=== PATIENT | female | born 1960 | race Caucasian/White ===

== ENCOUNTER 2018-02-25 07:53 | Inpatient (IN) | payer BC ==
[2018-02-25] MEDS: ACETAMINOPHEN 325 MG TAB PO ×2 (08:37→21:45)
[2018-02-25] MEDS: SODIUM CHLORIDE 0.9% 1L BAG IV* (08:37)
[2018-02-25] MEDS: ONDANSETRON 4 MG INJ IV ×3 (08:37→21:45)
[2018-02-25] MEDS: CEFEPIME 2GM/50 ML (PMX) 50 ML IVPB (08:38)
[2018-02-25] MEDS: morphine 4 MG/ML VIAL IV (08:38)
[2018-02-25 09:03] LABS: ADD MAN DIFF? NO
[2018-02-25 09:06] LABS: WHITE BLOOD COUNT 8.8 10^3/ul (4.8-10.8)
[2018-02-25 09:06] LABS: ABNORMAL IP MESSAGE 1; BASOPHILS % 0.5 % (0.0-2.0); EOSINOPHILS % 0.3 % (0.0-7.0); HEMATOCRIT 40.9 % (37.0-47.0); HEMOGLOBIN 12.9 g/dl (12.0-16.0); LYMPHOCYTES # 0.4 10^3/ul (0.8-2.9); LYMPHOCYTES % 4.9 % (15.0-51.0); MEAN CORPUSCULAR HEMOGLOBIN 26.8 pg (29.0-33.0); MEAN CORPUSCULAR HGB CONC 31.5 g/dl (32.0-37.0); MEAN PLATELET VOLUME 10.1 fl (7.4-10.4); MONOCYTES % 0.3 % (0.0-11.0); NEUTROPHIL # 8.3 10^3/ul (1.6-7.5); NEUTROPHILS % 93.3 % (39.0-77.0); PLATELET COUNT 215 10^3/UL (140-415); POSITIVE DIFF @See below; RED BLOOD COUNT 4.81 10^6/ul (4.20-5.40)
[2018-02-25 09:26] LABS: ALANINE AMINOTRANSFERASE 30 IU/L (13-69); ALBUMIN/GLOBULIN RATIO 1.25; ALKALINE PHOSPHATASE 111 IU/L (42-121); ANION GAP 24 (8-16); ASPARTATE AMINO TRANSFERASE 34 IU/L (15-46); BLOOD UREA NITROGEN 12 mg/dl (7-20); CALCIUM 9.2 mg/dl (8.4-10.2); CARBON DIOXIDE 23 mmol/L (21-31); CHLORIDE 95 mmol/L (97-110); CREATININE 0.81 mg/dl (0.44-1.00); GLUCOSE 254 mg/dl (70-220); INR 1.03; POTASSIUM 3.7 mmol/L (3.5-5.1); PROTIME 13.6 Sec (11.9-14.9); PT RATIO 1.1; SODIUM 138 mmol/L (135-144); TOTAL PROTEIN 7.2 g/dl (6.1-8.1)
[2018-02-25 09:27] LABS: PARTIAL THROMBOPLASTIN TIME 27.6 Sec (25.0-35.0)
[2018-02-25] MEDS: VANCOMYCIN 1 GM (PMX) 250 ML IVPB (09:28)
[2018-02-25 09:30] LABS: LACTIC ACID 4.9 mmol/L (0.5-2.0)
[2018-02-25 09:38] LABS: TROPONIN-I 0.114 ng/ml (0.000-0.120)
[2018-02-25 10:02] LABS: ADD UMIC YES; UR ASCORBIC ACID 20 mg/dL (NEGATIVE); UR BACTERIA FEW /HPF (NONE SEEN); UR BILIRUBIN (Dip) NEGATIVE (NEGATIVE); UR BLOOD (Dip) NEGATIVE (NEGATIVE); UR CLARITY CLEAR (CLEAR); UR COLOR YELLOW (YELLOW); UR GLUCOSE (Dip) 3+ mg/dL (NEGATIVE); UR KETONES (Dip) 1+ mg/dL (NEGATIVE); UR LEUKOCYTE ESTERASE (Dip) NEGATIVE Leu/ul (NEGATIVE); UR NITRITE (Dip) NEGATIVE (NEGATIVE); UR RBC 1 /HPF (0-5); UR SPECIFIC GRAVITY (Dip) 1.028 (1.003-1.030); UR SQUAMOUS EPITHELIAL CELL FEW /HPF (FEW); UR TOTAL PROTEIN (Dip) 2+ mg/dl (NEGATIVE); UR UROBILINOGEN (Dip) NEGATIVE (NEGATIVE); UR WBC 3 /HPF (0-5)
[2018-02-25 11:05] LABS: LACTIC ACID 3.8 mmol/L (0.5-2.0)
[2018-02-25] MEDS ORDERED: hydrALAzine 20 MG INJ IV (11:30)
[2018-02-25] MEDS ORDERED: ZOLPIDEM 5 MG TAB PO (11:30)
[2018-02-25] MEDS ORDERED: DOCUSATE SODIUM 100 MG CAP PO (11:30)
[2018-02-25] MEDS ORDERED: ACETAMINOPHEN 325 MG TAB PO (11:30)
[2018-02-25] MEDS ORDERED: NACL 0.9% 3 ML SYG IV (11:30)
[2018-02-25] MEDS: SOD CHLORIDE 0.9% 1,000 ML IV ×2 (12:55→21:17)
[2018-02-25] MEDS: morphine 2 MG INJ IV (13:18)
[2018-02-25 13:21] LABS: LACTIC ACID 2.8 mmol/L (0.5-2.0)
[2018-02-25] MEDS: INSULIN ASPART [NOVOLOG] 3 ML PEN SC ×5 (15:03→21:29)
[2018-02-25] MEDS: CEFTRIAXONE 1 GM/50 ML (PMX) 50 ML IVPB (17:30)
[2018-02-25] MEDS: morphine LIQ (10 MG/5 ML) CUP PO ×2 (17:31→21:45)
[2018-02-25] MEDS: LOSARTAN 25 MG TAB PO (18:25)
[2018-02-25] MEDS: ATORVASTATIN 20 MG TAB PO (21:19)
[2018-02-25] MEDS: TAMSULOSIN (SR) 0.4 MG CAP PO (21:19)
[2018-02-25] MEDS: HEPARIN 5,000 UNIT/0.5 ML VIAL SC (21:28)
[2018-02-25] MEDS: INSULIN GLARGINE [LANtus] 3 ML PEN SC (21:30)
[2018-02-25] MEDS ORDERED: VANCOMYCIN IV PER PHARMACY XX (22:30)
[2018-02-25] MEDS ORDERED: LORAZEPAM 2 MG INJ IM (22:30)
[2018-02-25] MEDS: LORAZEPAM 2 MG INJ IV (22:47)
[2018-02-25] MEDS: SOD CHLORIDE 0.9% 500 ML IV (22:47)
[2018-02-25] MEDS: PIPER-TAZO 3.375 GM IV (PMX) 100 ML IVPB (23:11)
[2018-02-26] MEDS: VANCOMYCIN 2 GM in SOD CHLORIDE 0.9% 500 ML IVPB (01:24)
[2018-02-26] MEDS: SOD CHLORIDE 0.9% 1,000 ML IV ×4 (01:39→20:30)
[2018-02-26] MEDS: ACCU-CHEK XX (01:50)
[2018-02-26] MEDS: NORepinephrine 8MG/250 ML (PMX 250 ML IV (02:41)
[2018-02-26] MEDS: LIDOCAINE 1% (MPF) 5 ML VIAL SC (03:00)
[2018-02-26] MEDS: MIDODRINE 5 MG TAB PO ×4 (05:21→20:50)
[2018-02-26] MEDS: ALBUMIN HUMAN 25% 100 ML IV (05:24)
[2018-02-26 06:02] LABS: LACTIC ACID 1.2 mmol/L (0.5-2.0)
[2018-02-26 06:11] LABS: ABNORMAL IP MESSAGE 1; HEMATOCRIT 36.9 % (37.0-47.0); HEMOGLOBIN 11.7 g/dl (12.0-16.0); MEAN CORPUSCULAR HEMOGLOBIN 27.1 pg (29.0-33.0); MEAN CORPUSCULAR HGB CONC 31.7 g/dl (32.0-37.0); MEAN CORPUSCULAR VOLUME 85.6 fl (82.0-101.0); MEAN PLATELET VOLUME 10.9 fl (7.4-10.4); PLATELET COUNT 161 10^3/UL (140-415); RED BLOOD COUNT 4.31 10^6/ul (4.20-5.40); RED CELL DISTRIBUTION WIDTH 14.6 % (11.5-14.5)
[2018-02-26 06:11] LABS: WHITE BLOOD COUNT 23.6 10^3/ul (4.8-10.8)
[2018-02-26 06:21] LABS: ANION GAP 19 (8-16); BLOOD UREA NITROGEN 24 mg/dl (7-20); CALCIUM 7.7 mg/dl (8.4-10.2); CARBON DIOXIDE 19 mmol/L (21-31); CHLORIDE 103 mmol/L (97-110); CREATININE 1.87 mg/dl (0.44-1.00); GLUCOSE 229 mg/dl (70-220); MAGNESIUM 1.3 mg/dl (1.7-2.5); PHOSPHORUS 4.5 mg/dl (2.5-4.9); POTASSIUM 4.3 mmol/L (3.5-5.1); SODIUM 137 mmol/L (135-144)
[2018-02-26] MEDS: PIPER-TAZO 3.375 GM IV (PMX) 100 ML IVPB ×2 (06:23→20:30)
[2018-02-26 06:50] LABS: POSITIVE DIFF @See below
[2018-02-26 06:51] LABS: ADD MAN DIFF? YES
[2018-02-26] MEDS ORDERED: PHENYLephrine (100 MCG/ML) 10ML SYG (07:00)
[2018-02-26] MEDS ORDERED: ALBUMIN HUMAN 5% 250 ML INJ (07:00)
[2018-02-26] MEDS ORDERED: ROCURONIUM 50 MG INJ (07:00)
[2018-02-26 07:57] LABS: ANISOCYTOSIS 2+ (0-0); BAND NEUTROPHILS #M 5.4 10^3/ul (0.0-0.6); BAND NEUTROPHILS % (M) 23 % (0-4); ERYTHROBLAST% (NRBC) (M) 1 % (0-0); LYMPHOCYTES #M 1.1 10^3/ul (0.8-2.9); LYMPHOCYTES % (M) 5 % (15-51); MICROCYTOSIS 2+ (0-0); MONOCYTE #M 0.4 10^3/ul (0.3-0.9); MONOCYTES % (M) 2 % (0-11); POLYCHROMASIA 3+ (0-0); SEG NEUT #M 17.8 10^3/ul (1.6-7.5); SEGMENTED NEUTROPHILS (M) % 70 % (39-77); SMUDGE%M 11 % (0-0)
[2018-02-26 08:03] LABS: PLATELET ESTIMATE NORMAL
[2018-02-26 08:09] LABS: ADD UMIC YES; UR ASCORBIC ACID NEGATIVE (NEGATIVE); UR BACTERIA FEW /HPF (NONE SEEN); UR BILIRUBIN (Dip) NEGATIVE (NEGATIVE); UR BLOOD (Dip) 2+ mg/dL (NEGATIVE); UR CLARITY TURBID (CLEAR); UR COLOR AMBER (YELLOW); UR GLUCOSE (Dip) 3+ mg/dL (NEGATIVE); UR KETONES (Dip) TRACE mg/dL (NEGATIVE); UR LEUKOCYTE ESTERASE (Dip) 2+ Leu/ul (NEGATIVE); UR MUCUS FEW /HPF (NONE SEEN); UR NITRITE (Dip) NEGATIVE (NEGATIVE); UR NONSQUAMOUS EPITHELIAL CELL 4 /HPF (NONE SEEN); UR RBC 25 /HPF (0-5); UR SQUAMOUS EPITHELIAL CELL FEW /HPF (FEW); UR TOTAL PROTEIN (Dip) 2+ mg/dl (NEGATIVE); UR UROBILINOGEN (Dip) NEGATIVE (NEGATIVE); UR WBC > 182 /HPF (0-5)
[2018-02-26] MEDS: INSULIN ASPART [NOVOLOG] 3 ML PEN SC ×7 (08:38→20:39)
[2018-02-26] MEDS: HEPARIN 5,000 UNIT/0.5 ML VIAL SC ×2 (09:00→20:41)
[2018-02-26] MEDS: LOSARTAN 25 MG TAB PO ×2 (09:00→20:44)
[2018-02-26] MEDS: GABAPENTIN 300 MG CAP PO (09:00)
[2018-02-26] MEDS: morphine LIQ (10 MG/5 ML) CUP PO ×2 (12:10→22:49)
[2018-02-26] MEDS: ONDANSETRON 4 MG INJ IV (12:10)
[2018-02-26] MEDS: PIPER-TAZO 2.25 GM (PMX) 50 ML IVPB (12:11)
[2018-02-26 14:25] LABS: HEMOGLOBIN A1C 7.5 % (0-5.9)
[2018-02-26] MEDS: VANCOMYCIN 1.5 GM in SOD CHLORIDE 0.9% 250 ML IVPB (15:46)
[2018-02-26] MEDS: MAGNESIUM SULFATE 2 GM/50 ML 50 ML IVPB ×3 (17:00→22:53)
[2018-02-26] MEDS ORDERED: MIDAZOLAM 1 MG/ML 2 ML INJ ×2 (17:02→18:47)
[2018-02-26] MEDS ORDERED: LIDOCAINE 2% (SDV) 5 ML INJ (17:02)
[2018-02-26] MEDS ORDERED: FENTAnyl 50 MCG/ML VIAL (17:02)
[2018-02-26] MEDS ORDERED: ETOMIDATE 20 MG INJ (17:02)
[2018-02-26] MEDS ORDERED: SUCCINYLCHOLINE CHLORIDE 100 MG/5 ML SYG IV (17:03)
[2018-02-26] MEDS ORDERED: MAGNESIUM SULFATE 4 GM/100 ML 100 ML IVPB (18:00)
[2018-02-26] MEDS ORDERED: IOHEXOL 300MG/ML 30 ML BTL (18:06)
[2018-02-26] MEDS ORDERED: SUGAMMADEX SODIUM 200 MG/2 ML VIAL IV (18:10)
[2018-02-26] MEDS ORDERED: METOCLOPRAMIDE 10 MG INJ (18:10)
[2018-02-26] MEDS: MIDAZOLAM 1 MG/ML 2 ML INJ IV (18:55)
[2018-02-26] MEDS ORDERED: LORAZEPAM 2 MG INJ IV (19:30)
[2018-02-26] MEDS ORDERED: VANCOMYCIN 2 GM in SOD CHLORIDE 0.9% 500 ML IVPB (19:30)
[2018-02-26] MEDS: ATORVASTATIN 20 MG TAB PO (20:23)
[2018-02-26] MEDS: TAMSULOSIN (SR) 0.4 MG CAP PO (20:23)
[2018-02-26] MEDS: LORAZEPAM 2 MG INJ IV ×2 (20:28→22:44)
[2018-02-26] MEDS: INSULIN GLARGINE [LANtus] 3 ML PEN SC (20:49)
[2018-02-26] MEDS: LEVALBUTEROL (NEB) 0.63 MG/3 ML AMP HHN (22:40)
[2018-02-26] MEDS: ACETAMINOPHEN 325 MG TAB PO (22:58)
[2018-02-27 00:27] LABS: Allen Test ACCEPTAB; Arterial Base Excess -10.9 mmol/L (-3.0-3); Arterial Blood Gas Oxygen Sat 96.2 mmHG (95.0-98.0); Arterial COHb 0.4 % (0.0-3.0); Arterial Fraction of Oxyhgb 95.4 % (93.0-99.0); Arterial HCO3 17.5 mmol/L (22.0-26.0); Arterial MetHb 0.4 % (0.0-1.5); Arterial Total Hemglobin 12.4 g/dl (12.0-18.0); Arterial pCO2 49.1 mmhg (35-45); MODE MASK - SIMPLE; Site Right Radial
[2018-02-27] MEDS ORDERED: FUROSEMIDE 40 MG INJ IV (01:00)
[2018-02-27] MEDS: FUROSEMIDE 20 MG INJ IV (01:32)
[2018-02-27] MEDS: FUROSEMIDE 40 MG INJ IV (01:38)
[2018-02-27] MEDS: PIPER-TAZO 3.375 GM IV (PMX) 100 ML IVPB ×2 (01:55→06:08)
[2018-02-27] MEDS: ACCU-CHEK XX ×2 (02:28→23:28)
[2018-02-27 03:00] LABS: Arterial Base Excess -8.5 mmol/L (-3.0-3); Arterial Blood Gas Oxygen Sat 97.4 mmHG (95.0-98.0); Arterial COHb 0.4 % (0.0-3.0); Arterial Fraction of Oxyhgb 96.7 % (93.0-99.0); Arterial HCO3 19.2 mmol/L (22.0-26.0); Arterial MetHb 0.3 % (0.0-1.5); Arterial Total Hemglobin 12.7 g/dl (12.0-18.0); Arterial pCO2 48.4 mmhg (35-45); Blood Gas IEPAP 15/5; MODE MASK - BIPAP; Site A-Line
[2018-02-27] MEDS: SOD CHLORIDE 0.9% 1,000 ML IV (03:42)
[2018-02-27 06:16] LABS: ADD MAN DIFF? NO
[2018-02-27 06:24] LABS: WHITE BLOOD COUNT 11.6 10^3/ul (4.8-10.8)
[2018-02-27 06:24] LABS: BASOPHILS % 0.2 % (0.0-2.0); EOSINOPHILS % 0.3 % (0.0-7.0); HEMATOCRIT 34.1 % (37.0-47.0); HEMOGLOBIN 10.6 g/dl (12.0-16.0); LYMPHOCYTES # 0.7 10^3/ul (0.8-2.9); LYMPHOCYTES % 6.4 % (15.0-51.0); MEAN CORPUSCULAR HEMOGLOBIN 26.8 pg (29.0-33.0); MEAN CORPUSCULAR HGB CONC 31.1 g/dl (32.0-37.0); MEAN CORPUSCULAR VOLUME 86.1 fl (82.0-101.0); MEAN PLATELET VOLUME 11.1 fl (7.4-10.4); MONOCYTE # 0.6 10^3/ul (0.3-0.9); MONOCYTES % 4.9 % (0.0-11.0); NEUTROPHIL # 10.1 10^3/ul (1.6-7.5); NEUTROPHILS % 87.7 % (39.0-77.0); PLATELET COUNT 133 10^3/UL (140-415); RED BLOOD COUNT 3.96 10^6/ul (4.20-5.40)
[2018-02-27 06:59] LABS: ANION GAP 18 (8-16); BLOOD UREA NITROGEN 36 mg/dl (7-20); CALCIUM 7.7 mg/dl (8.4-10.2); CARBON DIOXIDE 20 mmol/L (21-31); CHLORIDE 105 mmol/L (97-110); GLUCOSE 174 mg/dl (70-220); MAGNESIUM 2.5 mg/dl (1.7-2.5); POTASSIUM 4.8 mmol/L (3.5-5.1); SODIUM 138 mmol/L (135-144)
[2018-02-27] MEDS: INSULIN ASPART [NOVOLOG] 3 ML PEN SC ×7 (07:35→20:04)
[2018-02-27] MEDS: LOSARTAN 25 MG TAB PO (07:48)
[2018-02-27] MEDS: GABAPENTIN 300 MG CAP PO (09:00)
[2018-02-27] MEDS: MIDODRINE 5 MG TAB PO ×3 (09:00→20:02)
[2018-02-27 09:07] LABS: AADO2 Arterial 107.2 mmHg (7.0-24.0); Arterial Base Excess -13.1 mmol/L (-3.0-3); Arterial COHb 0.2 % (0.0-3.0); Arterial Fraction of Oxyhgb 97.4 % (93.0-99.0); Arterial HCO3 14.7 mmol/L (22.0-26.0); Arterial MetHb 0.4 % (0.0-1.5); Arterial Total Hemglobin 12.1 g/dl (12.0-18.0); Arterial pCO2 41.2 mmhg (35-45); Blood Gas IEPAP 15/5; Blood Gas PS 10; MODE MASK - BIPAP; Site A-Line
[2018-02-27] MEDS: HEPARIN 5,000 UNIT/0.5 ML VIAL SC ×2 (11:10→20:04)
[2018-02-27] MEDS: SODIUM BICARBONATE (IV ADD) 100 MEQ in SOD CHLORIDE 0.45% 1,000 ML IV ×2 (11:10→23:26)
[2018-02-27] MEDS: PIPER-TAZO 2.25 GM (PMX) 50 ML IVPB (11:37)
[2018-02-27] MEDS: BUMETANIDE 6 MG in DEXTROSE 5% 36 ML IV (13:44)
[2018-02-27 16:47] LABS: SODIUM,URINE RANDOM 104 mmol/L (30-90)
[2018-02-27 16:47] LABS: CREATININE,URINE RANDOM 69.25 mg/dl (20-320)
[2018-02-27 18:39] LABS: ANION GAP 17 (8-16); BLOOD UREA NITROGEN 39 mg/dl (7-20); CARBON DIOXIDE 19 mmol/L (21-31); CHLORIDE 107 mmol/L (97-110); GLUCOSE 174 mg/dl (70-220); POTASSIUM 4.8 mmol/L (3.5-5.1); SODIUM 138 mmol/L (135-144)
[2018-02-27] MEDS: MEROPENEM 500MG/50 ML (PMX) 50 ML IVPB (19:53)
[2018-02-27] MEDS: INSULIN GLARGINE [LANtus] 3 ML PEN SC (19:55)
[2018-02-27] MEDS: ATORVASTATIN 20 MG TAB PO (20:01)
[2018-02-27] MEDS: TAMSULOSIN (SR) 0.4 MG CAP PO (20:04)
[2018-02-28] MEDS: LORAZEPAM 2 MG INJ IV (04:26)
[2018-02-28 05:42] LABS: ADD MAN DIFF? NO
[2018-02-28 05:48] LABS: BASOPHILS % 0.3 % (0.0-2.0); EOSINOPHILS # 0.1 10^3/ul (0.0-0.5); EOSINOPHILS % 0.8 % (0.0-7.0); HEMATOCRIT 35.4 % (37.0-47.0); LYMPHOCYTES % 8.3 % (15.0-51.0); MEAN CORPUSCULAR HEMOGLOBIN 26.7 pg (29.0-33.0); MEAN CORPUSCULAR HGB CONC 31.1 g/dl (32.0-37.0); MEAN CORPUSCULAR VOLUME 85.9 fl (82.0-101.0); MEAN PLATELET VOLUME 11.2 fl (7.4-10.4); MONOCYTE # 0.7 10^3/ul (0.3-0.9); MONOCYTES % 6.4 % (0.0-11.0); NEUTROPHIL # 9.7 10^3/ul (1.6-7.5); NEUTROPHILS % 83.5 % (39.0-77.0); PLATELET COUNT 135 10^3/UL (140-415); RED BLOOD COUNT 4.12 10^6/ul (4.20-5.40); RED CELL DISTRIBUTION WIDTH 15.7 % (11.5-14.5)
[2018-02-28 05:48] LABS: WHITE BLOOD COUNT 11.6 10^3/ul (4.8-10.8)
[2018-02-28 06:22] LABS: ANION GAP 21 (8-16)
[2018-02-28 06:30] LABS: BLOOD UREA NITROGEN 44 mg/dl (7-20); CARBON DIOXIDE 21 mmol/L (21-31); CHLORIDE 102 mmol/L (97-110); CREATININE 4.61 mg/dl (0.44-1.00); GLUCOSE 167 mg/dl (70-220); MAGNESIUM 2.6 mg/dl (1.7-2.5); PHOSPHORUS 7.4 mg/dl (2.5-4.9); POTASSIUM 4.8 mmol/L (3.5-5.1); SODIUM 139 mmol/L (135-144)
[2018-02-28] MEDS: INSULIN ASPART [NOVOLOG] 3 ML PEN SC ×7 (07:35→21:00)
[2018-02-28] MEDS: HEPARIN 5,000 UNIT/0.5 ML VIAL SC ×2 (08:12→20:32)
[2018-02-28] MEDS: MEROPENEM 500MG/50 ML (PMX) 50 ML IVPB (08:23)
[2018-02-28] MEDS: SODIUM BICARBONATE (IV ADD) 100 MEQ in SOD CHLORIDE 0.45% 1,000 ML IV (08:23)
[2018-02-28] MEDS: MIDODRINE 5 MG TAB PO ×3 (09:00→20:31)
[2018-02-28] MEDS: GABAPENTIN 300 MG CAP PO (09:00)
[2018-02-28 09:40] LABS: AADO2 Arterial 133.4 mmHg (7.0-24.0); Arterial Base Excess -9.1 mmol/L (-3.0-3); Arterial Blood Gas Oxygen Sat 98.8 mmHG (95.0-98.0); Arterial COHb 0.6 % (0.0-3.0); Arterial Fraction of Oxyhgb 97.8 % (93.0-99.0); Arterial HCO3 20.5 mmol/L (22.0-26.0); Arterial MetHb 0.4 % (0.0-1.5); Arterial Total Hemglobin 12.5 g/dl (12.0-18.0); Arterial pCO2 62.3 mmhg (35-45); Blood Gas IEPAP 15/5; MODE MASK - BIPAP; Site A-Line
[2018-02-28 12:48] LABS: AADO2 Arterial 90.9 mmHg (7.0-24.0); Arterial Base Excess -10.6 mmol/L (-3.0-3); Arterial Blood Gas Oxygen Sat 98.3 mmHG (95.0-98.0); Arterial COHb 0.7 % (0.0-3.0); Arterial Fraction of Oxyhgb 97.2 % (93.0-99.0); Arterial HCO3 18.3 mmol/L (22.0-26.0); Arterial MetHb 0.4 % (0.0-1.5); Arterial Total Hemglobin 13.8 g/dl (12.0-18.0); Arterial pCO2 52.8 mmhg (35-45); Blood Gas IEPAP 18/8; MODE MASK - BIPAP; Site A-Line
[2018-02-28] MEDS: NA BICARBONATE 8.4% 50 ML SYG IV (13:43)
[2018-02-28 13:59] LABS: HEPATITIS B SURFACE ANTIGEN NEGATIVE (NEGATIVE)
[2018-02-28] MEDS: morphine 2 MG INJ IV (15:38)
[2018-02-28] MEDS ORDERED: SODIUM BICARBONATE (IV ADD) 100 MEQ in SOD CHLORIDE 0.45% 900 ML IV (16:30)
[2018-02-28] MEDS: SODIUM BICARBONATE (IV ADD) 100 MEQ in SOD CHLORIDE 0.45% 900 ML IV (16:30)
[2018-02-28] MEDS: TAMSULOSIN (SR) 0.4 MG CAP PO (20:31)
[2018-02-28] MEDS: ATORVASTATIN 20 MG TAB PO (20:31)
[2018-02-28] MEDS: INSULIN GLARGINE [LANtus] 3 ML PEN SC (20:33)
[2018-02-28] MEDS: ACCU-CHEK XX (21:01)
[2018-02-28] MEDS: morphine LIQ (10 MG/5 ML) CUP PO (23:16)
[2018-03-01] MEDS: HEPARIN 1000 UNITS/ML 10 ML INJ CATHETER ×2 (00:06→18:09)
[2018-03-01 01:00] LABS: AADO2 Arterial 57.3 mmHg (7.0-24.0); Arterial Base Excess -7.7 mmol/L (-3.0-3); Arterial Blood Gas Oxygen Sat 98.3 mmHG (95.0-98.0); Arterial COHb 0.1 % (0.0-3.0); Arterial Fraction of Oxyhgb 97.8 % (93.0-99.0); Arterial HCO3 19.5 mmol/L (22.0-26.0); Arterial MetHb 0.4 % (0.0-1.5); Arterial Total Hemglobin 10.9 g/dl (12.0-18.0); Blood Gas IEPAP 15/5; Blood Gas PS 10; MODE MASK - BIPAP; Site A-Line
[2018-03-01] MEDS: SODIUM BICARBONATE (IV ADD) 100 MEQ in SOD CHLORIDE 0.45% 900 ML IV (04:19)
[2018-03-01 05:21] LABS: ADD MAN DIFF? NO
[2018-03-01 05:28] LABS: BASOPHILS % 0.3 % (0.0-2.0); EOSINOPHILS # 0.2 10^3/ul (0.0-0.5); EOSINOPHILS % 1.4 % (0.0-7.0); HEMATOCRIT 35.5 % (37.0-47.0); HEMOGLOBIN 11.2 g/dl (12.0-16.0); LYMPHOCYTES # 0.9 10^3/ul (0.8-2.9); LYMPHOCYTES % 7.1 % (15.0-51.0); MEAN CORPUSCULAR HEMOGLOBIN 26.7 pg (29.0-33.0); MEAN CORPUSCULAR HGB CONC 31.5 g/dl (32.0-37.0); MEAN CORPUSCULAR VOLUME 84.7 fl (82.0-101.0); MEAN PLATELET VOLUME 10.8 fl (7.4-10.4); MONOCYTE # 0.8 10^3/ul (0.3-0.9); MONOCYTES % 6.8 % (0.0-11.0); NEUTROPHILS % 83.6 % (39.0-77.0); PLATELET COUNT 145 10^3/UL (140-415); RED BLOOD COUNT 4.19 10^6/ul (4.20-5.40); RED CELL DISTRIBUTION WIDTH 15.6 % (11.5-14.5)
[2018-03-01 06:07] LABS: ANION GAP 20 (8-16); BLOOD UREA NITROGEN 42 mg/dl (7-20); CALCIUM 7.7 mg/dl (8.4-10.2); CARBON DIOXIDE 22 mmol/L (21-31); CHLORIDE 105 mmol/L (97-110); CREATININE 4.53 mg/dl (0.44-1.00); GLUCOSE 131 mg/dl (70-220); MAGNESIUM 2.4 mg/dl (1.7-2.5); PHOSPHORUS 6.9 mg/dl (2.5-4.9); POTASSIUM 4.6 mmol/L (3.5-5.1); SODIUM 142 mmol/L (135-144)
[2018-03-01] MEDS: INSULIN ASPART [NOVOLOG] 3 ML PEN SC ×7 (07:35→20:04)
[2018-03-01] MEDS: MEROPENEM 500MG/50 ML (PMX) 50 ML IVPB (08:19)
[2018-03-01] MEDS: HEPARIN 5,000 UNIT/0.5 ML VIAL SC ×2 (08:20→20:07)
[2018-03-01] MEDS: DEXTROSE 5% 1,000 ML IV (08:27)
[2018-03-01 08:39] LABS: AADO2 Arterial 93.3 mmHg (7.0-24.0); Arterial Base Excess -6.7 mmol/L (-3.0-3); Arterial COHb 0.7 % (0.0-3.0); Arterial HCO3 20.9 mmol/L (22.0-26.0); Arterial MetHb 0.3 % (0.0-1.5); Arterial pCO2 50.9 mmhg (35-45); Blood Gas IEPAP 18/8; Blood Gas PS 10; MODE MASK - BIPAP; Site A-Line
[2018-03-01] MEDS: MIDODRINE 5 MG TAB PO ×2 (09:00→13:00)
[2018-03-01] MEDS: GABAPENTIN 300 MG CAP PO (09:00)
[2018-03-01] MEDS: morphine LIQ (10 MG/5 ML) CUP PO (13:20)
[2018-03-01] MEDS ORDERED: HEPARIN 1000 UNITS/ML 10 ML INJ (16:41)
[2018-03-01] MEDS: ATORVASTATIN 20 MG TAB PO (20:04)
[2018-03-01] MEDS: DIPHENHYDRAMINE 50 MG INJ IM (20:08)
[2018-03-01] MEDS: INSULIN GLARGINE [LANtus] 3 ML PEN SC (20:08)
[2018-03-01] MEDS: ACCU-CHEK XX (21:39)
[2018-03-02] MEDS: HYDROCODONE/APAP (5/325) TAB PO (02:57)
[2018-03-02 05:32] LABS: ADD MAN DIFF? NO
[2018-03-02 05:37] LABS: BASOPHIL # 0.1 10^3/ul (0.0-0.1); BASOPHILS % 0.6 % (0.0-2.0); EOSINOPHILS # 0.3 10^3/ul (0.0-0.5); EOSINOPHILS % 2.8 % (0.0-7.0); HEMATOCRIT 34.9 % (37.0-47.0); HEMOGLOBIN 11.2 g/dl (12.0-16.0); LYMPHOCYTES # 0.9 10^3/ul (0.8-2.9); LYMPHOCYTES % 8.3 % (15.0-51.0); MEAN CORPUSCULAR HEMOGLOBIN 27.3 pg (29.0-33.0); MEAN CORPUSCULAR HGB CONC 32.1 g/dl (32.0-37.0); MEAN CORPUSCULAR VOLUME 84.9 fl (82.0-101.0); MEAN PLATELET VOLUME 10.5 fl (7.4-10.4); MONOCYTE # 0.9 10^3/ul (0.3-0.9); MONOCYTES % 8.2 % (0.0-11.0); NEUTROPHIL # 8.7 10^3/ul (1.6-7.5); NEUTROPHILS % 79.5 % (39.0-77.0); PLATELET COUNT 182 10^3/UL (140-415); RED BLOOD COUNT 4.11 10^6/ul (4.20-5.40); RED CELL DISTRIBUTION WIDTH 15.8 % (11.5-14.5)
[2018-03-02 05:37] LABS: WHITE BLOOD COUNT 10.9 10^3/ul (4.8-10.8)
[2018-03-02 06:27] LABS: ANION GAP 18 (8-16); BLOOD UREA NITROGEN 41 mg/dl (7-20); CALCIUM 8.1 mg/dl (8.4-10.2); CARBON DIOXIDE 27 mmol/L (21-31); CHLORIDE 99 mmol/L (97-110); GLUCOSE 150 mg/dl (70-220); MAGNESIUM 2.5 mg/dl (1.7-2.5); PHOSPHORUS 6.8 mg/dl (2.5-4.9); POTASSIUM 4.3 mmol/L (3.5-5.1); SODIUM 140 mmol/L (135-144)
[2018-03-02] MEDS: INSULIN ASPART [NOVOLOG] 3 ML PEN SC ×8 (07:35→21:00)
[2018-03-02] MEDS: MEROPENEM 500MG/50 ML (PMX) 50 ML IVPB (08:47)
[2018-03-02] MEDS: GABAPENTIN 300 MG CAP PO (08:47)
[2018-03-02] MEDS: DEXTROSE 5% 1,000 ML IV (08:48)
[2018-03-02] MEDS: HEPARIN 5,000 UNIT/0.5 ML VIAL SC ×2 (08:52→23:58)
[2018-03-02] MEDS: ONDANSETRON 4 MG INJ IV (18:00)
[2018-03-02] MEDS: DIPHENHYDRAMINE 50 MG INJ IM (19:10)
[2018-03-02] MEDS: SOD CHLORIDE 0.9% 250 ML IV* (20:52)
[2018-03-02] MEDS: HEPARIN 1000 UNITS/ML 10 ML INJ CATHETER (22:50)
[2018-03-02] MEDS: ATORVASTATIN 20 MG TAB PO (23:57)
[2018-03-03] MEDS: INSULIN GLARGINE [LANtus] 3 ML PEN SC (00:50)
[2018-03-03] MEDS: ACCU-CHEK XX (02:00)
[2018-03-03 05:52] LABS: ADD MAN DIFF? NO
[2018-03-03 05:59] LABS: WHITE BLOOD COUNT 11.9 10^3/ul (4.8-10.8)
[2018-03-03 05:59] LABS: BASOPHIL # 0.1 10^3/ul (0.0-0.1); BASOPHILS % 0.6 % (0.0-2.0); EOSINOPHILS # 0.3 10^3/ul (0.0-0.5); EOSINOPHILS % 2.7 % (0.0-7.0); HEMATOCRIT 34.2 % (37.0-47.0); HEMOGLOBIN 10.8 g/dl (12.0-16.0); LYMPHOCYTES # 0.9 10^3/ul (0.8-2.9); LYMPHOCYTES % 7.7 % (15.0-51.0); MEAN CORPUSCULAR HGB CONC 31.6 g/dl (32.0-37.0); MEAN CORPUSCULAR VOLUME 85.5 fl (82.0-101.0); MEAN PLATELET VOLUME 9.9 fl (7.4-10.4); MONOCYTE # 0.9 10^3/ul (0.3-0.9); MONOCYTES % 7.5 % (0.0-11.0); NEUTROPHIL # 9.6 10^3/ul (1.6-7.5); NEUTROPHILS % 80.4 % (39.0-77.0); PLATELET COUNT 193 10^3/UL (140-415); RED CELL DISTRIBUTION WIDTH 15.8 % (11.5-14.5)
[2018-03-03 06:22] LABS: ANION GAP 17 (8-16); BLOOD UREA NITROGEN 36 mg/dl (7-20); CALCIUM 8.2 mg/dl (8.4-10.2); CARBON DIOXIDE 25 mmol/L (21-31); CHLORIDE 103 mmol/L (97-110); CREATININE 4.81 mg/dl (0.44-1.00); GLUCOSE 149 mg/dl (70-220); MAGNESIUM 2.3 mg/dl (1.7-2.5); PHOSPHORUS 6.5 mg/dl (2.5-4.9); POTASSIUM 4.6 mmol/L (3.5-5.1); SODIUM 140 mmol/L (135-144)
[2018-03-03] MEDS: DIPHENHYDRAMINE 50 MG INJ IM (07:42)
[2018-03-03] MEDS: GABAPENTIN 300 MG CAP PO (08:51)
[2018-03-03] MEDS: HEPARIN 5,000 UNIT/0.5 ML VIAL SC ×2 (08:52→22:18)
[2018-03-03] MEDS: INSULIN ASPART [NOVOLOG] 3 ML PEN SC ×9 (09:13→21:00)
[2018-03-03] MEDS: ONDANSETRON 4 MG INJ IV (14:50)
[2018-03-03] MEDS: HEPARIN 1000 UNITS/ML 10 ML INJ CATHETER (18:06)
[2018-03-03] MEDS: MEROPENEM 500MG/50 ML (PMX) 50 ML IVPB (18:09)
[2018-03-03] MEDS: DIPHENHYDRAMINE 25 MG CAP PO (21:59)
[2018-03-03] MEDS: ATORVASTATIN 20 MG TAB PO (21:59)
[2018-03-03] MEDS: LEVALBUTEROL (NEB) 0.63 MG/3 ML AMP HHN (23:48)
[2018-03-04] MEDS: hydrALAzine 20 MG INJ IV ×2 (03:56→19:43)
[2018-03-04] MEDS: MAGNESIUM HYDROXIDE 30ML CUP PO ×2 (03:56→18:35)
[2018-03-04 06:33] LABS: ADD MAN DIFF? NO
[2018-03-04 06:47] LABS: WHITE BLOOD COUNT 12.3 10^3/ul (4.8-10.8)
[2018-03-04 06:47] LABS: BASOPHIL # 0.1 10^3/ul (0.0-0.1); BASOPHILS % 0.5 % (0.0-2.0); EOSINOPHILS # 0.3 10^3/ul (0.0-0.5); EOSINOPHILS % 2.8 % (0.0-7.0); HEMATOCRIT 34.1 % (37.0-47.0); HEMOGLOBIN 10.8 g/dl (12.0-16.0); LYMPHOCYTES # 0.9 10^3/ul (0.8-2.9); LYMPHOCYTES % 7.6 % (15.0-51.0); MEAN CORPUSCULAR HEMOGLOBIN 26.9 pg (29.0-33.0); MEAN CORPUSCULAR HGB CONC 31.7 g/dl (32.0-37.0); MEAN PLATELET VOLUME 9.8 fl (7.4-10.4); MONOCYTE # 0.9 10^3/ul (0.3-0.9); MONOCYTES % 7.3 % (0.0-11.0); NEUTROPHIL # 9.5 10^3/ul (1.6-7.5); NEUTROPHILS % 77.2 % (39.0-77.0); PLATELET COUNT 235 10^3/UL (140-415); RED BLOOD COUNT 4.01 10^6/ul (4.20-5.40); RED CELL DISTRIBUTION WIDTH 15.4 % (11.5-14.5)
[2018-03-04 07:22] LABS: ANION GAP 19 (8-16); BLOOD UREA NITROGEN 38 mg/dl (7-20); CALCIUM 8.6 mg/dl (8.4-10.2); CARBON DIOXIDE 27 mmol/L (21-31); CHLORIDE 99 mmol/L (97-110); CREATININE 4.45 mg/dl (0.44-1.00); GLUCOSE 164 mg/dl (70-220); MAGNESIUM 2.4 mg/dl (1.7-2.5); PHOSPHORUS 5.7 mg/dl (2.5-4.9); POTASSIUM 4.4 mmol/L (3.5-5.1); SODIUM 141 mmol/L (135-144)
[2018-03-04] MEDS: morphine LIQ (10 MG/5 ML) CUP PO (07:32)
[2018-03-04] MEDS: GABAPENTIN 300 MG CAP PO (08:48)
[2018-03-04] MEDS: MEROPENEM 500MG/50 ML (PMX) 50 ML IVPB (08:48)
[2018-03-04] MEDS: HEPARIN 5,000 UNIT/0.5 ML VIAL SC ×2 (08:53→20:15)
[2018-03-04] MEDS: INSULIN ASPART [NOVOLOG] 3 ML PEN SC ×7 (08:54→20:18)
[2018-03-04] MEDS: NITROGLYCERIN (SL) 0.4 MG TAB SL ×2 (09:09→12:48)
[2018-03-04 11:26] LABS: TROPONIN-I 0.089 ng/ml (0.000-0.120)
[2018-03-04] MEDS ORDERED: GENTAMICIN IV PER PHARMACY XX (12:00)
[2018-03-04] MEDS: ONDANSETRON 4 MG INJ IV (12:49)
[2018-03-04] MEDS: LORATADINE 10 MG TAB PO (12:50)
[2018-03-04] MEDS: DEXTROSE 5% IVPB (13:35)
[2018-03-04] MEDS: GENTAMICIN IVPB (13:35)
[2018-03-04] MEDS: HYDROCORTISONE 1% 28 GM CR TOP (18:36)
[2018-03-04] MEDS: ATORVASTATIN 20 MG TAB PO (20:13)
[2018-03-04] MEDS: INSULIN GLARGINE [LANtus] 3 ML PEN SC (20:17)
[2018-03-05] MEDS: DIPHENHYDRAMINE 25 MG CAP PO ×2 (00:19→21:29)
[2018-03-05] MEDS: hydrALAzine 20 MG INJ IV ×2 (01:05→20:18)
[2018-03-05 06:21] LABS: WHITE BLOOD COUNT 12.7 10^3/ul (4.8-10.8)
[2018-03-05 06:21] LABS: ABNORMAL IP MESSAGE 1; HEMATOCRIT 35.1 % (37.0-47.0); HEMOGLOBIN 10.8 g/dl (12.0-16.0); MEAN CORPUSCULAR HEMOGLOBIN 26.6 pg (29.0-33.0); MEAN CORPUSCULAR HGB CONC 30.8 g/dl (32.0-37.0); MEAN CORPUSCULAR VOLUME 86.5 fl (82.0-101.0); MEAN PLATELET VOLUME 9.1 fl (7.4-10.4); PLATELET COUNT 275 10^3/UL (140-415); RED BLOOD COUNT 4.06 10^6/ul (4.20-5.40); RED CELL DISTRIBUTION WIDTH 15.1 % (11.5-14.5)
[2018-03-05 07:12] LABS: POSITIVE DIFF @See below
[2018-03-05 07:14] LABS: ADD MAN DIFF? YES
[2018-03-05 07:18] LABS: ANION GAP 17 (8-16); BLOOD UREA NITROGEN 50 mg/dl (7-20); CALCIUM 8.7 mg/dl (8.4-10.2); CARBON DIOXIDE 30 mmol/L (21-31); CHLORIDE 99 mmol/L (97-110); GLUCOSE 184 mg/dl (70-220); MAGNESIUM 3.1 mg/dl (1.7-2.5); PHOSPHORUS 6.6 mg/dl (2.5-4.9); POTASSIUM 4.8 mmol/L (3.5-5.1); SODIUM 141 mmol/L (135-144)
[2018-03-05 08:36] LABS: ANISOCYTOSIS 1+ (0-0); BAND NEUTROPHILS #M 0.1 10^3/ul (0.0-0.6); BAND NEUTROPHILS % (M) 1 % (0-4); EOSINOPHILS % (M) 5 % (0-7); LYMPHOCYTES #M 0.8 10^3/ul (0.8-2.9); LYMPHOCYTES % (M) 7 % (15-51); MICROCYTOSIS 1+ (0-0); MONOCYTE #M 1.1 10^3/ul (0.3-0.9); MONOCYTES % (M) 9 % (0-11); PLATELET ESTIMATE NORMAL; POLYCHROMASIA 1+ (0-0); SEG NEUT #M 9.9 10^3/ul (1.6-7.5); SEGMENTED NEUTROPHILS (M) % 78 % (39-77); SMUDGE%M 11 % (0-0)
[2018-03-05] MEDS: HEPARIN 1000 UNITS/ML 10 ML INJ CATHETER (08:44)
[2018-03-05] MEDS: LORATADINE 10 MG TAB PO (08:48)
[2018-03-05] MEDS: HYDROCORTISONE 1% 28 GM CR TOP ×2 (08:49→20:18)
[2018-03-05] MEDS: INSULIN ASPART [NOVOLOG] 3 ML PEN SC ×7 (08:51→20:35)
[2018-03-05] MEDS: HEPARIN 5,000 UNIT/0.5 ML VIAL SC ×2 (08:53→20:35)
[2018-03-05] MEDS: GABAPENTIN 300 MG CAP PO ×2 (08:57→20:18)
[2018-03-05] MEDS: GENTAMICIN 90 MG in SOD CHLORIDE 0.9% 50 ML IVPB (11:46)
[2018-03-05] MEDS: ONDANSETRON 4 MG INJ IV (16:25)
[2018-03-05] MEDS: ATORVASTATIN 20 MG TAB PO (20:18)
[2018-03-05] MEDS: INSULIN GLARGINE [LANtus] 3 ML PEN SC (20:36)
[2018-03-06] MEDS: LOSARTAN 25 MG TAB PO ×2 (00:23→09:50)
[2018-03-06] MEDS: DIPHENHYDRAMINE 25 MG CAP PO ×2 (05:50→20:38)
[2018-03-06 07:01] LABS: ABNORMAL IP MESSAGE 1; HEMATOCRIT 36.5 % (37.0-47.0); HEMOGLOBIN 11.3 g/dl (12.0-16.0); MEAN CORPUSCULAR HEMOGLOBIN 26.7 pg (29.0-33.0); MEAN CORPUSCULAR VOLUME 86.3 fl (82.0-101.0); PLATELET COUNT 292 10^3/UL (140-415); RED BLOOD COUNT 4.23 10^6/ul (4.20-5.40); RED CELL DISTRIBUTION WIDTH 15.1 % (11.5-14.5)
[2018-03-06 07:01] LABS: WHITE BLOOD COUNT 13.1 10^3/ul (4.8-10.8)
[2018-03-06 07:07] LABS: ADD MAN DIFF? YES; POSITIVE DIFF @See below
[2018-03-06 07:24] LABS: ANION GAP 18 (8-16); BLOOD UREA NITROGEN 58 mg/dl (7-20); CALCIUM 8.8 mg/dl (8.4-10.2); CARBON DIOXIDE 28 mmol/L (21-31); CHLORIDE 99 mmol/L (97-110); CREATININE 5.34 mg/dl (0.44-1.00); GLUCOSE 227 mg/dl (70-220); PHOSPHORUS 6.7 mg/dl (2.5-4.9); POTASSIUM 5.3 mmol/L (3.5-5.1); SODIUM 140 mmol/L (135-144)
[2018-03-06] MEDS: INSULIN ASPART [NOVOLOG] 3 ML PEN SC ×7 (08:36→21:00)
[2018-03-06] MEDS: MULTIVIT/CA CARB/B CMPLX/FA TAB PO (09:49)
[2018-03-06] MEDS: SEVELAMER 800 MG TAB PO ×2 (09:49→13:20)
[2018-03-06] MEDS: LORATADINE 10 MG TAB PO (09:50)
[2018-03-06] MEDS: HYDROCORTISONE 1% 28 GM CR TOP ×3 (09:51→20:05)
[2018-03-06] MEDS: HEPARIN 5,000 UNIT/0.5 ML VIAL SC ×2 (09:55→20:44)
[2018-03-06 10:46] LABS: ANISOCYTOSIS 1+ (0-0); BAND NEUTROPHILS #M 0.1 10^3/ul (0.0-0.6); BAND NEUTROPHILS % (M) 1 % (0-4); BASOPHIL #M 0.1 10^3/ul (0.0-0.0); BASOPHILS % (M) 1 % (0-2); EOSINOPHILS % (M) 3 % (0-7); LYMPHOCYTES #M 0.9 10^3/ul (0.8-2.9); LYMPHOCYTES % (M) 7 % (15-51); METAMYELOCYTES #M 0.3 10^3/ul (0.0-0.0); METAMYELOCYTES %M 3 % (0-0); MONOCYTES % (M) 8 % (0-11); MYELOCYTES #M 0.2 10^3/ul (0.0-0.0); MYELOCYTES % (M) 2 % (0-0); PLATELET ESTIMATE NORMAL; POLYCHROMASIA 2+ (0-0); SEG NEUT #M 9.8 10^3/ul (1.6-7.5); SEGMENTED NEUTROPHILS (M) % 75 % (39-77); SMUDGE%M 2 % (0-0)
[2018-03-06] MEDS: SEVELAMER CARBONATE 800 MG TABLET PO ×2 (13:50→18:23)
[2018-03-06] MEDS: AMLODIPINE 5 MG TAB PO ×2 (14:10→23:40)
[2018-03-06] MEDS: HEPARIN 1000 UNITS/ML 10 ML INJ CATHETER (16:44)
[2018-03-06] MEDS: GENTAMICIN 90 MG in SOD CHLORIDE 0.9% 50 ML IVPB (19:10)
[2018-03-06] MEDS: GABAPENTIN 300 MG CAP PO (20:04)
[2018-03-06] MEDS: hydrALAzine 20 MG INJ IV (20:06)
[2018-03-06] MEDS: INSULIN GLARGINE [LANtus] 3 ML PEN SC (20:23)
[2018-03-07] MEDS: HYDROCORTISONE 1% 28 GM CR TOP ×6 (01:39→21:00)
[2018-03-07 07:05] LABS: ABNORMAL IP MESSAGE 1; HEMATOCRIT 32.5 % (37.0-47.0); HEMOGLOBIN 10.2 g/dl (12.0-16.0); MEAN CORPUSCULAR HEMOGLOBIN 26.8 pg (29.0-33.0); MEAN CORPUSCULAR HGB CONC 31.4 g/dl (32.0-37.0); MEAN CORPUSCULAR VOLUME 85.3 fl (82.0-101.0); NUCLEATED RED BLOOD CELLS% 0.1 /100WBC (0.0-0.0); PLATELET COUNT 293 10^3/UL (140-415); RED BLOOD COUNT 3.81 10^6/ul (4.20-5.40); RED CELL DISTRIBUTION WIDTH 14.8 % (11.5-14.5)
[2018-03-07 07:05] LABS: WHITE BLOOD COUNT 14.3 10^3/ul (4.8-10.8)
[2018-03-07 07:12] LABS: ADD MAN DIFF? YES; POSITIVE DIFF @See below
[2018-03-07 07:30] LABS: ANION GAP 16 (8-16); BLOOD UREA NITROGEN 56 mg/dl (7-20); CALCIUM 8.7 mg/dl (8.4-10.2); CARBON DIOXIDE 30 mmol/L (21-31); CHLORIDE 97 mmol/L (97-110); CREATININE 4.86 mg/dl (0.44-1.00); GLUCOSE 239 mg/dl (70-220); MAGNESIUM 2.7 mg/dl (1.7-2.5); PHOSPHORUS 4.3 mg/dl (2.5-4.9); POTASSIUM 4.4 mmol/L (3.5-5.1); SODIUM 139 mmol/L (135-144)
[2018-03-07 08:10] LABS: ANISOCYTOSIS 2+ (0-0); BASOPHIL #M 0.2 10^3/ul (0.0-0.0); BASOPHILS % (M) 2 % (0-2); EOSINOPHILS % (M) 3 % (0-7); LYMPHOCYTES #M 0.7 10^3/ul (0.8-2.9); LYMPHOCYTES % (M) 5 % (15-51); MICROCYTOSIS 2+ (0-0); MONOCYTE #M 0.5 10^3/ul (0.3-0.9); MONOCYTES % (M) 4 % (0-11); MYELOCYTES #M 0.4 10^3/ul (0.0-0.0); MYELOCYTES % (M) 3 % (0-0); PLATELET ESTIMATE NORMAL; POLYCHROMASIA 1+ (0-0); SEGMENTED NEUTROPHILS (M) % 83 % (39-77); SMUDGE%M 1 % (0-0)
[2018-03-07] MEDS: AMLODIPINE 10 MG TAB PO (08:19)
[2018-03-07] MEDS: MULTIVIT/CA CARB/B CMPLX/FA TAB PO (08:19)
[2018-03-07] MEDS: SEVELAMER CARBONATE 800 MG TABLET PO ×3 (08:19→17:14)
[2018-03-07] MEDS: LORATADINE 10 MG TAB PO (08:20)
[2018-03-07] MEDS: HEPARIN 5,000 UNIT/0.5 ML VIAL SC ×2 (08:21→21:56)
[2018-03-07] MEDS: INSULIN ASPART [NOVOLOG] 3 ML PEN SC ×7 (08:21→22:09)
[2018-03-07] MEDS ORDERED: AMLODIPINE 5 MG TAB PO (09:00)
[2018-03-07] MEDS: DOXYCYCLINE 100 MG TAB PO ×2 (13:14→21:43)
[2018-03-07] MEDS: ONDANSETRON 4 MG INJ IV (17:14)
[2018-03-07] MEDS: GABAPENTIN 300 MG CAP PO (21:42)
[2018-03-07] MEDS: hydrALAzine 20 MG INJ IV (21:43)
[2018-03-07] MEDS: MAGNESIUM HYDROXIDE 30ML CUP PO (21:57)
[2018-03-07] MEDS: INSULIN GLARGINE [LANtus] 3 ML PEN SC (22:16)
[2018-03-08] MEDS: HYDROCORTISONE 1% 28 GM CR TOP ×6 (01:42→20:45)
[2018-03-08 07:48] LABS: ADD MAN DIFF? NO
[2018-03-08 07:56] LABS: WHITE BLOOD COUNT 17.3 10^3/ul (4.8-10.8)
[2018-03-08 07:56] LABS: BASOPHIL # 0.1 10^3/ul (0.0-0.1); BASOPHILS % 0.5 % (0.0-2.0); EOSINOPHILS # 0.7 10^3/ul (0.0-0.5); EOSINOPHILS % 4.2 % (0.0-7.0); HEMATOCRIT 30.6 % (37.0-47.0); HEMOGLOBIN 9.6 g/dl (12.0-16.0); LYMPHOCYTES # 1.2 10^3/ul (0.8-2.9); LYMPHOCYTES % 6.9 % (15.0-51.0); MEAN CORPUSCULAR HGB CONC 31.4 g/dl (32.0-37.0); MEAN CORPUSCULAR VOLUME 86.2 fl (82.0-101.0); MEAN PLATELET VOLUME 9.1 fl (7.4-10.4); MONOCYTE # 1.2 10^3/ul (0.3-0.9); MONOCYTES % 7.1 % (0.0-11.0); NEUTROPHIL # 13.4 10^3/ul (1.6-7.5); NEUTROPHILS % 77.1 % (39.0-77.0); PLATELET COUNT 316 10^3/UL (140-415); RED BLOOD COUNT 3.55 10^6/ul (4.20-5.40); RED CELL DISTRIBUTION WIDTH 14.9 % (11.5-14.5)
[2018-03-08] MEDS: INSULIN ASPART [NOVOLOG] 3 ML PEN SC ×7 (08:00→20:42)
[2018-03-08] MEDS: SEVELAMER CARBONATE 800 MG TABLET PO ×3 (08:03→18:04)
[2018-03-08] MEDS: DOXYCYCLINE 100 MG TAB PO (08:04)
[2018-03-08] MEDS: LORATADINE 10 MG TAB PO (08:04)
[2018-03-08] MEDS: MULTIVIT/CA CARB/B CMPLX/FA TAB PO (08:04)
[2018-03-08] MEDS: AMLODIPINE 10 MG TAB PO (08:06)
[2018-03-08] MEDS: HEPARIN 5,000 UNIT/0.5 ML VIAL SC ×2 (08:07→20:44)
[2018-03-08 08:21] LABS: ANION GAP 16 (8-16); BLOOD UREA NITROGEN 75 mg/dl (7-20); CARBON DIOXIDE 28 mmol/L (21-31); CHLORIDE 101 mmol/L (97-110); CREATININE 5.64 mg/dl (0.44-1.00); GLUCOSE 236 mg/dl (70-220); MAGNESIUM 3.1 mg/dl (1.7-2.5); PHOSPHORUS 4.8 mg/dl (2.5-4.9); POTASSIUM 5.1 mmol/L (3.5-5.1); SODIUM 140 mmol/L (135-144)
[2018-03-08] MEDS: ONDANSETRON 4 MG INJ IV (12:39)
[2018-03-08] MEDS: ZYVOX 600 MG TAB PO ×2 (13:54→20:44)
[2018-03-08] MEDS ORDERED: CEFTRIAXONE 1 GM/50 ML (PMX) 50 ML IVPB (15:30)
[2018-03-08] MEDS: hydrALAzine 20 MG INJ IV (15:49)
[2018-03-08] MEDS: ACETAMINOPHEN 325 MG TAB PO (18:36)
[2018-03-08] MEDS: INSULIN GLARGINE [LANtus] 3 ML PEN SC (20:43)
[2018-03-08] MEDS: GABAPENTIN 300 MG CAP PO (20:44)
[2018-03-09] MEDS: ONDANSETRON 4 MG INJ IV ×2 (00:02→06:04)
[2018-03-09] MEDS: HYDROCORTISONE 1% 28 GM CR TOP ×7 (00:17→21:11)
[2018-03-09] MEDS: PANTOPRAZOLE (EC) 40 MG TAB PO (06:04)
[2018-03-09 06:29] LABS: ADD MAN DIFF? NO
[2018-03-09 06:39] LABS: WHITE BLOOD COUNT 20.1 10^3/ul (4.8-10.8)
[2018-03-09 06:39] LABS: BASOPHIL # 0.1 10^3/ul (0.0-0.1); BASOPHILS % 0.4 % (0.0-2.0); EOSINOPHILS # 0.7 10^3/ul (0.0-0.5); EOSINOPHILS % 3.4 % (0.0-7.0); HEMATOCRIT 29.7 % (37.0-47.0); HEMOGLOBIN 9.3 g/dl (12.0-16.0); LYMPHOCYTES # 1.2 10^3/ul (0.8-2.9); LYMPHOCYTES % 5.8 % (15.0-51.0); MEAN CORPUSCULAR HGB CONC 31.3 g/dl (32.0-37.0); MEAN CORPUSCULAR VOLUME 86.1 fl (82.0-101.0); MEAN PLATELET VOLUME 9.1 fl (7.4-10.4); MONOCYTE # 1.2 10^3/ul (0.3-0.9); NEUTROPHIL # 16.3 10^3/ul (1.6-7.5); NEUTROPHILS % 81.1 % (39.0-77.0); PLATELET COUNT 286 10^3/UL (140-415); RED BLOOD COUNT 3.45 10^6/ul (4.20-5.40); RED CELL DISTRIBUTION WIDTH 14.8 % (11.5-14.5)
[2018-03-09 07:08] LABS: ANION GAP 18 (8-16); BLOOD UREA NITROGEN 86 mg/dl (7-20); CALCIUM 8.9 mg/dl (8.4-10.2); CARBON DIOXIDE 29 mmol/L (21-31); CHLORIDE 99 mmol/L (97-110); CREATININE 7.15 mg/dl (0.44-1.00); GLUCOSE 230 mg/dl (70-220); MAGNESIUM 3.2 mg/dl (1.7-2.5); POTASSIUM 5.4 mmol/L (3.5-5.1); SODIUM 141 mmol/L (135-144)
[2018-03-09] MEDS: HEPARIN 5,000 UNIT/0.5 ML VIAL SC (08:13)
[2018-03-09] MEDS: INSULIN ASPART [NOVOLOG] 3 ML PEN SC ×7 (08:15→21:00)
[2018-03-09] MEDS: SEVELAMER CARBONATE 800 MG TABLET PO ×3 (08:16→18:01)
[2018-03-09] MEDS: LORATADINE 10 MG TAB PO (08:17)
[2018-03-09] MEDS: MULTIVIT/CA CARB/B CMPLX/FA TAB PO (08:17)
[2018-03-09] MEDS: ZYVOX 600 MG TAB PO ×2 (08:18→21:10)
[2018-03-09] MEDS: AMLODIPINE 10 MG TAB PO (08:19)
[2018-03-09] MEDS ORDERED: DEXTROSE 50% 50 ML SYRINGE IV ×2 (11:30)
[2018-03-09] MEDS ORDERED: GLUCOSE GEL 15 GRAM TUBE PO ×2 (11:30)
[2018-03-09] MEDS ORDERED: GLUCOSE GEL 15 GRAM TUBE BUCCAL (11:30)
[2018-03-09] MEDS ORDERED: GLUCAGON 1 MG INJ IM (11:30)
[2018-03-09] MEDS: SUCRALFATE 1 GM TAB PO ×3 (12:21→21:10)
[2018-03-09] MEDS: PANTOPRAZOLE 40 MG INJ IV (18:01)
[2018-03-09] MEDS: HEPARIN 1000 UNITS/ML 10 ML INJ CATHETER (18:26)
[2018-03-09 18:53] LABS: OCCULT BLOOD STOOL POSITIVE (NEGATIVE)
[2018-03-09] MEDS: HYDROCODONE/APAP (5/325) TAB PO (21:10)
[2018-03-09] MEDS: GABAPENTIN 300 MG CAP PO (21:11)
[2018-03-09] MEDS: INSULIN GLARGINE [LANtus] 3 ML PEN SC (22:12)
[2018-03-09] MEDS: GENTAMICIN 90 MG in SOD CHLORIDE 0.9% 50 ML IVPB (22:56)
[2018-03-10] MEDS: HYDROCORTISONE 1% 28 GM CR TOP ×6 (00:28→21:48)
[2018-03-10 05:53] LABS: ADD MAN DIFF? NO
[2018-03-10 06:02] LABS: WHITE BLOOD COUNT 19.6 10^3/ul (4.8-10.8)
[2018-03-10 06:02] LABS: BASOPHIL # 0.1 10^3/ul (0.0-0.1); BASOPHILS % 0.5 % (0.0-2.0); EOSINOPHILS # 0.8 10^3/ul (0.0-0.5); EOSINOPHILS % 4.2 % (0.0-7.0); HEMATOCRIT 27.6 % (37.0-47.0); HEMOGLOBIN 8.6 g/dl (12.0-16.0); LYMPHOCYTES # 1.6 10^3/ul (0.8-2.9); LYMPHOCYTES % 7.9 % (15.0-51.0); MEAN CORPUSCULAR HEMOGLOBIN 26.8 pg (29.0-33.0); MEAN CORPUSCULAR HGB CONC 31.2 g/dl (32.0-37.0); MONOCYTE # 1.3 10^3/ul (0.3-0.9); MONOCYTES % 6.6 % (0.0-11.0); NEUTROPHIL # 15.4 10^3/ul (1.6-7.5); NEUTROPHILS % 78.4 % (39.0-77.0); PLATELET COUNT 252 10^3/UL (140-415); RED BLOOD COUNT 3.21 10^6/ul (4.20-5.40); RED CELL DISTRIBUTION WIDTH 14.6 % (11.5-14.5)
[2018-03-10 06:18] LABS: ANION GAP 15 (8-16); BLOOD UREA NITROGEN 48 mg/dl (7-20); CALCIUM 8.5 mg/dl (8.4-10.2); CARBON DIOXIDE 31 mmol/L (21-31); CHLORIDE 98 mmol/L (97-110); CREATININE 4.77 mg/dl (0.44-1.00); GLUCOSE 164 mg/dl (70-220); MAGNESIUM 2.6 mg/dl (1.7-2.5); PHOSPHORUS 4.3 mg/dl (2.5-4.9); POTASSIUM 4.5 mmol/L (3.5-5.1); SODIUM 139 mmol/L (135-144)
[2018-03-10] MEDS: PANTOPRAZOLE 40 MG INJ IV ×2 (06:31→17:55)
[2018-03-10] MEDS: SEVELAMER CARBONATE 800 MG TABLET PO ×3 (07:48→17:55)
[2018-03-10] MEDS: INSULIN ASPART [NOVOLOG] 3 ML PEN SC ×7 (07:53→21:00)
[2018-03-10] MEDS: ZYVOX 600 MG TAB PO ×2 (08:54→21:46)
[2018-03-10] MEDS: SUCRALFATE 1 GM TAB PO ×4 (08:54→21:46)
[2018-03-10] MEDS: MULTIVIT/CA CARB/B CMPLX/FA TAB PO (08:54)
[2018-03-10] MEDS: LORATADINE 10 MG TAB PO (08:54)
[2018-03-10] MEDS: AMLODIPINE 10 MG TAB PO (08:59)
[2018-03-10] MEDS: INSULIN GLARGINE [LANtus] 3 ML PEN SC ×2 (20:00→22:52)
[2018-03-10] MEDS: MAGNESIUM CITRATE 300 ML BTL PO (21:45)
[2018-03-10] MEDS: GABAPENTIN 300 MG CAP PO (21:46)
[2018-03-10] MEDS: BISACODYL (EC) 5 MG TAB PO (21:46)
[2018-03-10] MEDS: POLYETHYLENE GLYCOL 3350 119 GM POWDER PO (22:18)
[2018-03-11] MEDS: HYDROCORTISONE 1% 28 GM CR TOP ×6 (00:30→21:00)
[2018-03-11] MEDS: DEXTROSE 5%-0.45% NACL 1,000 ML IV (00:37)
[2018-03-11 06:10] LABS: ADD MAN DIFF? NO
[2018-03-11 06:16] LABS: BASOPHIL # 0.1 10^3/ul (0.0-0.1); BASOPHILS % 0.5 % (0.0-2.0); EOSINOPHILS # 0.6 10^3/ul (0.0-0.5); EOSINOPHILS % 3.7 % (0.0-7.0); HEMATOCRIT 28.4 % (37.0-47.0); HEMOGLOBIN 8.8 g/dl (12.0-16.0); LYMPHOCYTES # 1.3 10^3/ul (0.8-2.9); LYMPHOCYTES % 7.7 % (15.0-51.0); MEAN CORPUSCULAR HEMOGLOBIN 26.7 pg (29.0-33.0); MEAN CORPUSCULAR VOLUME 86.1 fl (82.0-101.0); MONOCYTE # 1.2 10^3/ul (0.3-0.9); NEUTROPHIL # 13.6 10^3/ul (1.6-7.5); NEUTROPHILS % 79.4 % (39.0-77.0); PLATELET COUNT 242 10^3/UL (140-415); RED CELL DISTRIBUTION WIDTH 14.5 % (11.5-14.5)
[2018-03-11 06:16] LABS: WHITE BLOOD COUNT 17.2 10^3/ul (4.8-10.8)
[2018-03-11] MEDS: PANTOPRAZOLE 40 MG INJ IV ×2 (06:52→17:33)
[2018-03-11] MEDS: POLYETHYLENE GLYCOL 3350 119 GM POWDER PO (06:52)
[2018-03-11 07:01] LABS: ANION GAP 15 (8-16); BLOOD UREA NITROGEN 57 mg/dl (7-20); CALCIUM 8.6 mg/dl (8.4-10.2); CARBON DIOXIDE 29 mmol/L (21-31); CHLORIDE 101 mmol/L (97-110); CREATININE 5.59 mg/dl (0.44-1.00); GLUCOSE 172 mg/dl (70-220); MAGNESIUM 2.8 mg/dl (1.7-2.5); PHOSPHORUS 5.2 mg/dl (2.5-4.9); POTASSIUM 4.9 mmol/L (3.5-5.1); SODIUM 140 mmol/L (135-144)
[2018-03-11] MEDS: SEVELAMER CARBONATE 800 MG TABLET PO ×3 (08:15→17:33)
[2018-03-11] MEDS: INSULIN ASPART [NOVOLOG] 3 ML PEN SC ×7 (08:15→21:03)
[2018-03-11] MEDS: AMLODIPINE 10 MG TAB PO (08:18)
[2018-03-11] MEDS: BISACODYL (EC) 5 MG TAB PO (08:18)
[2018-03-11] MEDS: LORATADINE 10 MG TAB PO (08:20)
[2018-03-11] MEDS: SUCRALFATE 1 GM TAB PO ×4 (08:20→22:11)
[2018-03-11] MEDS: MULTIVIT/CA CARB/B CMPLX/FA TAB PO (08:21)
[2018-03-11] MEDS: ZYVOX 600 MG TAB PO ×2 (08:21→22:11)
[2018-03-11] MEDS: FLUCONAZOLE 100 MG TAB PO (12:30)
[2018-03-11] MEDS ORDERED: PROPOFOL 60 ML ×2 (16:37→17:13)
[2018-03-11] MEDS ORDERED: LIDOCAINE 2% (SDV) 5 ML INJ ×2 (16:37→17:13)
[2018-03-11] MEDS ORDERED: KETAMINE (100 MG/ML) 5 ML VIAL (16:44)
[2018-03-11] MEDS ORDERED: MIDAZOLAM 1 MG/ML 2 ML INJ (17:10)
[2018-03-11] MEDS: hydrALAzine 20 MG INJ IV (19:55)
[2018-03-11] MEDS: INSULIN GLARGINE [LANtus] 3 ML PEN SC (21:03)
[2018-03-11] MEDS: GABAPENTIN 300 MG CAP PO (22:12)
[2018-03-11] MEDS: HEPARIN 1000 UNITS/ML 10 ML INJ CATHETER (22:24)
[2018-03-12] MEDS: ALTEPLASE (CATHFLO) 2 MG INJ CATHETER (00:01)
[2018-03-12] MEDS: HYDROCORTISONE 1% 28 GM CR TOP ×6 (01:00→20:11)
[2018-03-12] MEDS: PANTOPRAZOLE 40 MG INJ IV ×2 (06:07→17:48)
[2018-03-12 06:19] LABS: ADD MAN DIFF? NO
[2018-03-12 06:28] LABS: BASOPHIL # 0.1 10^3/ul (0.0-0.1); BASOPHILS % 0.7 % (0.0-2.0); EOSINOPHILS # 0.5 10^3/ul (0.0-0.5); HEMATOCRIT 27.1 % (37.0-47.0); HEMOGLOBIN 8.6 g/dl (12.0-16.0); LYMPHOCYTES # 1.1 10^3/ul (0.8-2.9); LYMPHOCYTES % 7.2 % (15.0-51.0); MEAN CORPUSCULAR HEMOGLOBIN 27.3 pg (29.0-33.0); MEAN CORPUSCULAR HGB CONC 31.7 g/dl (32.0-37.0); MEAN PLATELET VOLUME 9.1 fl (7.4-10.4); MONOCYTES % 6.4 % (0.0-11.0); NEUTROPHIL # 12.5 10^3/ul (1.6-7.5); NEUTROPHILS % 81.8 % (39.0-77.0); PLATELET COUNT 231 10^3/UL (140-415); RED BLOOD COUNT 3.15 10^6/ul (4.20-5.40); RED CELL DISTRIBUTION WIDTH 14.4 % (11.5-14.5)
[2018-03-12 06:28] LABS: WHITE BLOOD COUNT 15.2 10^3/ul (4.8-10.8)
[2018-03-12 06:59] LABS: ANION GAP 14 (8-16); BLOOD UREA NITROGEN 53 mg/dl (7-20); CALCIUM 8.6 mg/dl (8.4-10.2); CARBON DIOXIDE 29 mmol/L (21-31); CHLORIDE 103 mmol/L (97-110); CREATININE 5.43 mg/dl (0.44-1.00); GLUCOSE 186 mg/dl (70-220); MAGNESIUM 2.7 mg/dl (1.7-2.5); POTASSIUM 4.9 mmol/L (3.5-5.1); SODIUM 141 mmol/L (135-144)
[2018-03-12] MEDS: SEVELAMER CARBONATE 800 MG TABLET PO ×3 (07:58→17:48)
[2018-03-12] MEDS: INSULIN ASPART [NOVOLOG] 3 ML PEN SC ×7 (08:03→20:25)
[2018-03-12] MEDS: SUCRALFATE 1 GM TAB PO ×4 (09:04→20:11)
[2018-03-12] MEDS: MULTIVIT/CA CARB/B CMPLX/FA TAB PO (09:04)
[2018-03-12] MEDS: ZYVOX 600 MG TAB PO ×2 (09:04→20:37)
[2018-03-12] MEDS: FLUCONAZOLE 100 MG TAB PO (09:04)
[2018-03-12] MEDS: LORATADINE 10 MG TAB PO (09:04)
[2018-03-12] MEDS: AMLODIPINE 10 MG TAB PO (09:05)
[2018-03-12] MEDS: GABAPENTIN 300 MG CAP PO (20:11)
[2018-03-12] MEDS: INSULIN GLARGINE [LANtus] 3 ML PEN SC (20:24)
[2018-03-13] MEDS: HEPARIN 1000 UNITS/ML 10 ML INJ CATHETER (00:43)
[2018-03-13] MEDS: HYDROCORTISONE 1% 28 GM CR TOP ×6 (01:00→20:56)
[2018-03-13] MEDS: CASPOFUNGIN 70 MG in SOD CHLORIDE 0.9% 250 ML IVPB (01:12)
[2018-03-13] MEDS: PANTOPRAZOLE 40 MG INJ IV ×2 (05:07→17:51)
[2018-03-13 06:10] LABS: ADD MAN DIFF? NO
[2018-03-13 06:21] LABS: BASOPHIL # 0.1 10^3/ul (0.0-0.1); BASOPHILS % 0.7 % (0.0-2.0); EOSINOPHILS # 0.4 10^3/ul (0.0-0.5); EOSINOPHILS % 3.2 % (0.0-7.0); HEMATOCRIT 27.3 % (37.0-47.0); HEMOGLOBIN 8.5 g/dl (12.0-16.0); LYMPHOCYTES # 1.3 10^3/ul (0.8-2.9); LYMPHOCYTES % 9.6 % (15.0-51.0); MEAN CORPUSCULAR HEMOGLOBIN 26.6 pg (29.0-33.0); MEAN CORPUSCULAR HGB CONC 31.1 g/dl (32.0-37.0); MEAN CORPUSCULAR VOLUME 85.6 fl (82.0-101.0); MONOCYTE # 0.9 10^3/ul (0.3-0.9); MONOCYTES % 6.8 % (0.0-11.0); NEUTROPHIL # 10.7 10^3/ul (1.6-7.5); NEUTROPHILS % 78.9 % (39.0-77.0); PLATELET COUNT 234 10^3/UL (140-415); RED BLOOD COUNT 3.19 10^6/ul (4.20-5.40); RED CELL DISTRIBUTION WIDTH 14.4 % (11.5-14.5)
[2018-03-13 06:21] LABS: WHITE BLOOD COUNT 13.6 10^3/ul (4.8-10.8)
[2018-03-13 06:57] LABS: ANION GAP 15 (8-16); BLOOD UREA NITROGEN 30 mg/dl (7-20); CALCIUM 8.5 mg/dl (8.4-10.2); CARBON DIOXIDE 30 mmol/L (21-31); CHLORIDE 101 mmol/L (97-110); CREATININE 3.46 mg/dl (0.44-1.00); GLUCOSE 151 mg/dl (70-220); MAGNESIUM 2.2 mg/dl (1.7-2.5); PHOSPHORUS 3.9 mg/dl (2.5-4.9); POTASSIUM 4.3 mmol/L (3.5-5.1); SODIUM 142 mmol/L (135-144)
[2018-03-13] MEDS: MULTIVIT/CA CARB/B CMPLX/FA TAB PO (08:43)
[2018-03-13] MEDS: SEVELAMER CARBONATE 800 MG TABLET PO ×3 (08:44→17:51)
[2018-03-13] MEDS: AMLODIPINE 10 MG TAB PO (08:44)
[2018-03-13] MEDS: SUCRALFATE 1 GM TAB PO ×4 (08:44→20:41)
[2018-03-13] MEDS: ZYVOX 600 MG TAB PO ×2 (08:47→20:41)
[2018-03-13] MEDS: LORATADINE 10 MG TAB PO (08:47)
[2018-03-13] MEDS: INSULIN ASPART [NOVOLOG] 3 ML PEN SC ×7 (08:53→20:52)
[2018-03-13] MEDS: ACETAMINOPHEN 325 MG TAB PO (12:36)
[2018-03-13] MEDS: GABAPENTIN 300 MG CAP PO (20:41)
[2018-03-13] MEDS: CASPOFUNGIN 50 MG in SOD CHLORIDE 0.9% 250 ML IVPB (20:41)
[2018-03-13] MEDS: INSULIN GLARGINE [LANtus] 3 ML PEN SC (21:02)
[2018-03-14] MEDS: HYDROCORTISONE 1% 28 GM CR TOP ×6 (00:38→20:38)
[2018-03-14 06:04] LABS: ADD MAN DIFF? NO
[2018-03-14] MEDS: PANTOPRAZOLE 40 MG INJ IV ×2 (06:08→17:42)
[2018-03-14 06:09] LABS: WHITE BLOOD COUNT 12.8 10^3/ul (4.8-10.8)
[2018-03-14 06:09] LABS: BASOPHIL # 0.1 10^3/ul (0.0-0.1); BASOPHILS % 0.9 % (0.0-2.0); EOSINOPHILS # 0.5 10^3/ul (0.0-0.5); EOSINOPHILS % 3.5 % (0.0-7.0); HEMATOCRIT 28.8 % (37.0-47.0); HEMOGLOBIN 8.8 g/dl (12.0-16.0); LYMPHOCYTES # 1.5 10^3/ul (0.8-2.9); LYMPHOCYTES % 11.4 % (15.0-51.0); MEAN CORPUSCULAR HEMOGLOBIN 26.6 pg (29.0-33.0); MEAN CORPUSCULAR HGB CONC 30.6 g/dl (32.0-37.0); MEAN PLATELET VOLUME 8.7 fl (7.4-10.4); MONOCYTE # 0.9 10^3/ul (0.3-0.9); MONOCYTES % 7.2 % (0.0-11.0); NEUTROPHIL # 9.8 10^3/ul (1.6-7.5); NEUTROPHILS % 76.3 % (39.0-77.0); PLATELET COUNT 248 10^3/UL (140-415); RED BLOOD COUNT 3.31 10^6/ul (4.20-5.40); RED CELL DISTRIBUTION WIDTH 14.2 % (11.5-14.5)
[2018-03-14 06:36] LABS: ANION GAP 14 (8-16); BLOOD UREA NITROGEN 43 mg/dl (7-20); CALCIUM 8.9 mg/dl (8.4-10.2); CARBON DIOXIDE 30 mmol/L (21-31); CHLORIDE 101 mmol/L (97-110); CREATININE 4.46 mg/dl (0.44-1.00); GLUCOSE 184 mg/dl (70-220); MAGNESIUM 2.2 mg/dl (1.7-2.5); PHOSPHORUS 5.5 mg/dl (2.5-4.9); POTASSIUM 4.8 mmol/L (3.5-5.1); SODIUM 140 mmol/L (135-144)
[2018-03-14] MEDS: SEVELAMER CARBONATE 800 MG TABLET PO ×3 (07:58→17:41)
[2018-03-14] MEDS: MULTIVIT/CA CARB/B CMPLX/FA TAB PO (07:59)
[2018-03-14] MEDS: ZYVOX 600 MG TAB PO ×2 (07:59→20:37)
[2018-03-14] MEDS: SUCRALFATE 1 GM TAB PO ×4 (07:59→20:37)
[2018-03-14] MEDS: LORATADINE 10 MG TAB PO (07:59)
[2018-03-14] MEDS: AMLODIPINE 10 MG TAB PO (08:00)
[2018-03-14] MEDS: INSULIN ASPART [NOVOLOG] 3 ML PEN SC ×7 (08:02→21:00)
[2018-03-14] MEDS: GABAPENTIN 300 MG CAP PO (20:37)
[2018-03-14] MEDS: CASPOFUNGIN 50 MG in SOD CHLORIDE 0.9% 250 ML IVPB (20:38)
[2018-03-14] MEDS: INSULIN GLARGINE [LANtus] 3 ML PEN SC (20:48)
[2018-03-15] MEDS: HYDROCORTISONE 1% 28 GM CR TOP ×7 (01:00→21:00)
[2018-03-15 05:42] LABS: ADD MAN DIFF? NO
[2018-03-15 05:45] LABS: BASOPHIL # 0.1 10^3/ul (0.0-0.1); BASOPHILS % 1.1 % (0.0-2.0); EOSINOPHILS # 0.4 10^3/ul (0.0-0.5); EOSINOPHILS % 3.4 % (0.0-7.0); HEMATOCRIT 27.8 % (37.0-47.0); HEMOGLOBIN 8.7 g/dl (12.0-16.0); LYMPHOCYTES # 1.2 10^3/ul (0.8-2.9); LYMPHOCYTES % 10.2 % (15.0-51.0); MEAN CORPUSCULAR HEMOGLOBIN 26.9 pg (29.0-33.0); MEAN CORPUSCULAR HGB CONC 31.3 g/dl (32.0-37.0); MEAN CORPUSCULAR VOLUME 86.1 fl (82.0-101.0); MEAN PLATELET VOLUME 8.3 fl (7.4-10.4); MONOCYTE # 0.8 10^3/ul (0.3-0.9); NEUTROPHIL # 8.9 10^3/ul (1.6-7.5); NEUTROPHILS % 77.7 % (39.0-77.0); PLATELET COUNT 257 10^3/UL (140-415); RED BLOOD COUNT 3.23 10^6/ul (4.20-5.40); RED CELL DISTRIBUTION WIDTH 14.1 % (11.5-14.5)
[2018-03-15 05:45] LABS: WHITE BLOOD COUNT 11.4 10^3/ul (4.8-10.8)
[2018-03-15] MEDS: PANTOPRAZOLE 40 MG INJ IV ×2 (06:19→17:48)
[2018-03-15 06:21] LABS: ANION GAP 18 (8-16); BLOOD UREA NITROGEN 46 mg/dl (7-20); CARBON DIOXIDE 26 mmol/L (21-31); CHLORIDE 103 mmol/L (97-110); CREATININE 4.56 mg/dl (0.44-1.00); GLUCOSE 178 mg/dl (70-220); PHOSPHORUS 6.1 mg/dl (2.5-4.9); SODIUM 142 mmol/L (135-144)
[2018-03-15] MEDS: SEVELAMER CARBONATE 800 MG TABLET PO ×3 (07:49→17:48)
[2018-03-15] MEDS: INSULIN ASPART [NOVOLOG] 3 ML PEN SC ×7 (08:00→20:50)
[2018-03-15] MEDS: LORATADINE 10 MG TAB PO (09:00)
[2018-03-15] MEDS: AMLODIPINE 10 MG TAB PO (09:07)
[2018-03-15] MEDS: MULTIVIT/CA CARB/B CMPLX/FA TAB PO (09:07)
[2018-03-15] MEDS: SUCRALFATE 1 GM TAB PO ×4 (09:07→20:51)
[2018-03-15] MEDS: ZYVOX 600 MG TAB PO ×2 (12:52→20:50)
[2018-03-15] MEDS: ACETAMINOPHEN 325 MG TAB PO (13:40)
[2018-03-15] MEDS: CALCIUM CARBONATE 500 MG CHEW TAB PO (16:45)
[2018-03-15] MEDS: INSULIN GLARGINE [LANtus] 3 ML PEN SC (20:00)
[2018-03-15] MEDS: GABAPENTIN 300 MG CAP PO (20:50)
[2018-03-16] MEDS: HYDROCORTISONE 1% 28 GM CR TOP ×6 (00:14→21:00)
[2018-03-16 06:04] LABS: ADD MAN DIFF? NO
[2018-03-16 06:17] LABS: WHITE BLOOD COUNT 11.2 10^3/ul (4.8-10.8)
[2018-03-16 06:17] LABS: BASOPHIL # 0.2 10^3/ul (0.0-0.1); BASOPHILS % 1.3 % (0.0-2.0); EOSINOPHILS # 0.4 10^3/ul (0.0-0.5); EOSINOPHILS % 3.7 % (0.0-7.0); HEMATOCRIT 27.8 % (37.0-47.0); HEMOGLOBIN 8.4 g/dl (12.0-16.0); LYMPHOCYTES # 1.5 10^3/ul (0.8-2.9); LYMPHOCYTES % 13.3 % (15.0-51.0); MEAN CORPUSCULAR HEMOGLOBIN 25.9 pg (29.0-33.0); MEAN CORPUSCULAR HGB CONC 30.2 g/dl (32.0-37.0); MEAN CORPUSCULAR VOLUME 85.8 fl (82.0-101.0); MEAN PLATELET VOLUME 8.7 fl (7.4-10.4); MONOCYTE # 0.7 10^3/ul (0.3-0.9); MONOCYTES % 6.6 % (0.0-11.0); NEUTROPHIL # 8.4 10^3/ul (1.6-7.5); NEUTROPHILS % 74.7 % (39.0-77.0); PLATELET COUNT 270 10^3/UL (140-415); RED BLOOD COUNT 3.24 10^6/ul (4.20-5.40); RED CELL DISTRIBUTION WIDTH 14.2 % (11.5-14.5)
[2018-03-16] MEDS: PANTOPRAZOLE 40 MG INJ IV ×2 (06:31→17:52)
[2018-03-16 06:44] LABS: ANION GAP 16 (8-16); CALCIUM 9.1 mg/dl (8.4-10.2); CARBON DIOXIDE 25 mmol/L (21-31); CHLORIDE 106 mmol/L (97-110); CREATININE 4.44 mg/dl (0.44-1.00); GLUCOSE 185 mg/dl (70-220); MAGNESIUM 1.9 mg/dl (1.7-2.5); PHOSPHORUS 6.3 mg/dl (2.5-4.9); POTASSIUM 4.9 mmol/L (3.5-5.1); SODIUM 142 mmol/L (135-144)
[2018-03-16] MEDS: SEVELAMER CARBONATE 800 MG TABLET PO ×3 (07:53→17:41)
[2018-03-16] MEDS: INSULIN ASPART [NOVOLOG] 3 ML PEN SC ×7 (08:06→21:11)
[2018-03-16 08:12] LABS: BLOOD UREA NITROGEN 54 mg/dl (7-20)
[2018-03-16] MEDS: LORATADINE 10 MG TAB PO ×2 (08:51→08:56)
[2018-03-16] MEDS: MULTIVIT/CA CARB/B CMPLX/FA TAB PO (08:51)
[2018-03-16] MEDS: ZYVOX 600 MG TAB PO (08:51)
[2018-03-16] MEDS: AMLODIPINE 10 MG TAB PO (08:51)
[2018-03-16] MEDS: SUCRALFATE 1 GM TAB PO ×4 (08:51→21:08)
[2018-03-16] MEDS: CALCIUM CARBONATE 500 MG CHEW TAB PO (09:02)
[2018-03-16] MEDS ORDERED: GENTAMICIN IV PER PHARMACY XX (14:00)
[2018-03-16] MEDS: GENTAMICIN IVPB (16:16)
[2018-03-16] MEDS: DEXTROSE 5% IVPB (16:16)
[2018-03-16] MEDS: GABAPENTIN 300 MG CAP PO (21:07)
[2018-03-16] MEDS: INSULIN GLARGINE [LANtus] 3 ML PEN SC (21:11)
[2018-03-17] MEDS: HYDROCORTISONE 1% 28 GM CR TOP ×6 (00:28→21:30)
[2018-03-17 05:46] LABS: ADD MAN DIFF? NO
[2018-03-17 05:57] LABS: BASOPHIL # 0.1 10^3/ul (0.0-0.1); BASOPHILS % 1.3 % (0.0-2.0); EOSINOPHILS # 0.4 10^3/ul (0.0-0.5); EOSINOPHILS % 4.1 % (0.0-7.0); HEMATOCRIT 29.7 % (37.0-47.0); HEMOGLOBIN 9.2 g/dl (12.0-16.0); LYMPHOCYTES # 1.4 10^3/ul (0.8-2.9); LYMPHOCYTES % 14.1 % (15.0-51.0); MEAN CORPUSCULAR HEMOGLOBIN 26.8 pg (29.0-33.0); MEAN CORPUSCULAR VOLUME 86.6 fl (82.0-101.0); MEAN PLATELET VOLUME 8.4 fl (7.4-10.4); MONOCYTE # 0.5 10^3/ul (0.3-0.9); MONOCYTES % 5.1 % (0.0-11.0); NEUTROPHIL # 7.5 10^3/ul (1.6-7.5); PLATELET COUNT 280 10^3/UL (140-415); RED BLOOD COUNT 3.43 10^6/ul (4.20-5.40)
[2018-03-17] MEDS: PANTOPRAZOLE 40 MG INJ IV ×2 (06:21→18:00)
[2018-03-17 06:49] LABS: ANION GAP 16 (8-16); BLOOD UREA NITROGEN 55 mg/dl (7-20); CALCIUM 9.3 mg/dl (8.4-10.2); CARBON DIOXIDE 27 mmol/L (21-31); CHLORIDE 106 mmol/L (97-110); CREATININE 3.96 mg/dl (0.44-1.00); GLUCOSE 179 mg/dl (70-220); MAGNESIUM 1.9 mg/dl (1.7-2.5); PHOSPHORUS 6.4 mg/dl (2.5-4.9); POTASSIUM 4.5 mmol/L (3.5-5.1); SODIUM 144 mmol/L (135-144)
[2018-03-17] MEDS: MULTIVIT/CA CARB/B CMPLX/FA TAB PO (08:28)
[2018-03-17] MEDS: SEVELAMER CARBONATE 800 MG TABLET PO ×3 (08:28→18:00)
[2018-03-17] MEDS: SUCRALFATE 1 GM TAB PO ×4 (08:28→21:30)
[2018-03-17] MEDS: AMLODIPINE 10 MG TAB PO (08:29)
[2018-03-17] MEDS: INSULIN GLARGINE [LANtus] 3 ML PEN SC (08:30)
[2018-03-17] MEDS: INSULIN ASPART [NOVOLOG] 3 ML PEN SC ×6 (08:31→20:37)
[2018-03-17] MEDS: LORATADINE 10 MG TAB PO (09:00)
[2018-03-17] MEDS: SOD CHLORIDE 0.45% 1,000 ML IV (10:09)
[2018-03-17] MEDS ORDERED: AMIKACIN IV PER PHARMACY XX (11:30)
[2018-03-17] MEDS: LINAGLIPTIN 5 MG TABLET PO (13:30)
[2018-03-17] MEDS: AMIKACIN IVPB (14:13)
[2018-03-17] MEDS: SOD CHLORIDE 0.9% IVPB (14:13)
[2018-03-17] MEDS ORDERED: MIDAZOLAM 1 MG/ML 2 ML INJ (17:50)
[2018-03-17] MEDS ORDERED: KETAMINE (100 MG/ML) 5 ML VIAL (17:51)
[2018-03-17] MEDS ORDERED: DIPHENHYDRAMINE 50 MG INJ IV (18:00)
[2018-03-17] MEDS ORDERED: LABETALOL HCL 20MG INJ IV (18:00)
[2018-03-17] MEDS ORDERED: EPHEDrine SULFATE 50 MG/5 ML SYG IV (18:00)
[2018-03-17] MEDS ORDERED: MIDAZOLAM 1 MG/ML 2 ML INJ IV (18:00)
[2018-03-17] MEDS ORDERED: METOCLOPRAMIDE 10 MG INJ IV (18:00)
[2018-03-17] MEDS ORDERED: FENTAnyl 50 MCG/ML VIAL IV ×3 (18:00)
[2018-03-17] MEDS ORDERED: hydrALAzine 20 MG INJ IV (18:00)
[2018-03-17] MEDS ORDERED: ONDANSETRON 4 MG INJ IV (18:00)
[2018-03-17] MEDS ORDERED: MEPERIDINE 25 MG INJ IV (18:00)
[2018-03-17] MEDS: LIDOCAINE 2% 20 ML UROJET SYRINGE (18:13)
[2018-03-17] MEDS ORDERED: LABETALOL HCL 20MG INJ (18:20)
[2018-03-17] MEDS ORDERED: ONDANSETRON 4 MG INJ (18:20)
[2018-03-17] MEDS: INSULIN GLARGINE [LANTus] (100 UNITS/ML) SYG SC (20:35)
[2018-03-17] MEDS: GABAPENTIN 300 MG CAP PO (21:30)
[2018-03-18] MEDS: SOD CHLORIDE 0.45% 1,000 ML IV ×2 (03:43→11:40)
[2018-03-18] MEDS: HYDROCORTISONE 1% 28 GM CR TOP ×6 (03:43→21:00)
[2018-03-18] MEDS: PANTOPRAZOLE 40 MG INJ IV ×2 (06:06→17:51)
[2018-03-18 06:15] LABS: ADD MAN DIFF? NO
[2018-03-18 06:19] LABS: WHITE BLOOD COUNT 8.4 10^3/ul (4.8-10.8)
[2018-03-18 06:19] LABS: BASOPHIL # 0.1 10^3/ul (0.0-0.1); BASOPHILS % 1.2 % (0.0-2.0); EOSINOPHILS # 0.4 10^3/ul (0.0-0.5); EOSINOPHILS % 4.9 % (0.0-7.0); HEMATOCRIT 27.7 % (37.0-47.0); HEMOGLOBIN 8.3 g/dl (12.0-16.0); LYMPHOCYTES # 1.5 10^3/ul (0.8-2.9); LYMPHOCYTES % 17.9 % (15.0-51.0); MEAN CORPUSCULAR HEMOGLOBIN 26.2 pg (29.0-33.0); MEAN CORPUSCULAR VOLUME 87.4 fl (82.0-101.0); MEAN PLATELET VOLUME 8.6 fl (7.4-10.4); MONOCYTE # 0.6 10^3/ul (0.3-0.9); NEUTROPHIL # 5.8 10^3/ul (1.6-7.5); NEUTROPHILS % 68.6 % (39.0-77.0); PLATELET COUNT 225 10^3/UL (140-415); RED BLOOD COUNT 3.17 10^6/ul (4.20-5.40); RED CELL DISTRIBUTION WIDTH 14.1 % (11.5-14.5)
[2018-03-18 07:06] LABS: ANION GAP 16 (8-16); BLOOD UREA NITROGEN 46 mg/dl (7-20); CALCIUM 9.1 mg/dl (8.4-10.2); CARBON DIOXIDE 27 mmol/L (21-31); CHLORIDE 108 mmol/L (97-110); GLUCOSE 137 mg/dl (70-220); MAGNESIUM 1.7 mg/dl (1.7-2.5); PHOSPHORUS 6.9 mg/dl (2.5-4.9); POTASSIUM 4.4 mmol/L (3.5-5.1); SODIUM 147 mmol/L (135-144)
[2018-03-18] MEDS: SEVELAMER CARBONATE 800 MG TABLET PO ×3 (08:13→17:51)
[2018-03-18] MEDS: MULTIVIT/CA CARB/B CMPLX/FA TAB PO (08:13)
[2018-03-18] MEDS: SUCRALFATE 1 GM TAB PO ×4 (08:13→21:30)
[2018-03-18] MEDS: LINAGLIPTIN 5 MG TABLET PO (08:14)
[2018-03-18] MEDS: INSULIN ASPART [NOVOLOG] 3 ML PEN SC ×7 (08:15→21:00)
[2018-03-18] MEDS: LORATADINE 10 MG TAB PO (08:22)
[2018-03-18] MEDS: AMLODIPINE 10 MG TAB PO (08:26)
[2018-03-18] MEDS ORDERED: INSULIN GLARGINE [LANTus] (100 UNITS/ML) SYG SC (20:00)
[2018-03-18] MEDS: GABAPENTIN 300 MG CAP PO (21:30)
[2018-03-19] MEDS: HYDROCORTISONE 1% 28 GM CR TOP ×4 (01:00→12:38)
[2018-03-19] MEDS: PANTOPRAZOLE 40 MG INJ IV (06:04)
[2018-03-19 06:27] LABS: ANION GAP 18 (8-16); BLOOD UREA NITROGEN 44 mg/dl (7-20); CALCIUM 9.3 mg/dl (8.4-10.2); CARBON DIOXIDE 23 mmol/L (21-31); CHLORIDE 109 mmol/L (97-110); CREATININE 2.69 mg/dl (0.44-1.00); GLUCOSE 146 mg/dl (70-220); MAGNESIUM 1.6 mg/dl (1.7-2.5); PHOSPHORUS 5.8 mg/dl (2.5-4.9); POTASSIUM 4.4 mmol/L (3.5-5.1); SODIUM 146 mmol/L (135-144)
[2018-03-19] MEDS: MULTIVIT/CA CARB/B CMPLX/FA TAB PO (08:13)
[2018-03-19] MEDS: SEVELAMER CARBONATE 800 MG TABLET PO ×2 (08:13→12:28)
[2018-03-19] MEDS: AMLODIPINE 10 MG TAB PO (08:14)
[2018-03-19] MEDS: SUCRALFATE 1 GM TAB PO ×2 (08:14→12:28)
[2018-03-19] MEDS: LINAGLIPTIN 5 MG TABLET PO (08:14)
[2018-03-19] MEDS: INSULIN ASPART [NOVOLOG] 3 ML PEN SC ×4 (08:17→12:30)
[2018-03-19] MEDS: LORATADINE 10 MG TAB PO (08:26)
[2018-03-19] MEDS: MAGNESIUM OXIDE 400 MG TAB PO (12:38)
[2018-03-19] MEDS ORDERED: INSULIN GLARGINE [LANTus] (100 UNITS/ML) SYG SC (20:00)
[2018-03-21 19:37] LABS: RENIN, PLASMA 0.78 ng/mL/h (0.25-5.82)
[2018-03-23 06:36] LABS: ALDOSTERONE <2 ng/dL
== END 2018-03-19 16:35 | disposition home or self-care (01) | DRG 871 ==
LOC: MS2 03-08 06:50 → ICU 11:53 → MS2 03-08 17:44 → E/R 07:53 → TEL 03-03 18:34 → MS4 11:09 → ICU 23:28
PROC: 0T778DZ Dilation of Left Ureter with Intraluminal Device, Via Natural or Artificial Opening Endoscopic (ICD-10-PCS; principal; 2018-02-26 17:00)
PROC: 06HY33Z Insertion of Infusion Device into Lower Vein, Percutaneous Approach (ICD-10-PCS; 2018-02-26 17:05)
PROC: 0DJ08ZZ Inspection of Upper Intestinal Tract, Via Natural or Artificial Opening Endoscopic (ICD-10-PCS; 2018-02-26 17:05)
PROC: 0DJD8ZZ Inspection of Lower Intestinal Tract, Via Natural or Artificial Opening Endoscopic (ICD-10-PCS; 2018-02-26 17:05)
PROC: 0TP98DZ Removal of Intraluminal Device from Ureter, Via Natural or Artificial Opening Endoscopic (ICD-10-PCS; 2018-02-26 17:05)
PROC: 5A1D70Z Performance of Urinary Filtration, Intermittent, Less than 6 Hours Per Day (ICD-10-PCS; 2018-02-26 17:05)
PROC: 5A09457 Assistance with Respiratory Ventilation, 24-96 Consecutive Hours, Continuous Positive Airway Pressure (ICD-10-PCS; 2018-02-26 17:05)
DX: A41.51 Sepsis due to Escherichia coli [E. coli] (principal); R65.21 Severe sepsis with septic shock; J96.01 Acute respiratory failure with hypoxia; N17.0 Acute kidney failure with tubular necrosis; J96.92 Respiratory failure, unspecified with hypercapnia; N39.0 Urinary tract infection, site not specified; E87.2 Acidosis; N13.2 Hydronephrosis with renal and ureteral calculous obstruction; J81.1 Chronic pulmonary edema; L03.116 Cellulitis of left lower limb; L03.115 Cellulitis of right lower limb; K92.1 Melena; B37.49 Other urogenital candidiasis; E87.0 Hyperosmolality and hypernatremia; Z68.44 Body mass index [BMI] 60.0-69.9, adult; I10 Essential (primary) hypertension; E66.01 Morbid (severe) obesity due to excess calories; K26.9 Duodenal ulcer, unspecified as acute or chronic, without hemorrhage or perforation; I89.0 Lymphedema, not elsewhere classified; E83.42 Hypomagnesemia; E83.39 Other disorders of phosphorus metabolism; R31.0 Gross hematuria; G47.33 Obstructive sleep apnea (adult) (pediatric); L25.9 Unspecified contact dermatitis, unspecified cause; E87.5 Hyperkalemia; E11.65 Type 2 diabetes mellitus with hyperglycemia; D44.12 Neoplasm of uncertain behavior of left adrenal gland; Z79.4 Long term (current) use of insulin
CPT/HCPCS: 36415; 36600; 71045; 74018; 74176; 74420; 76775; 80048; 80053; 81001; 82088; 82270; 82382; 82530; 82533; 82803; 82962; 83036; 83605; 83735; 84100; 84155; 84244; 84300; 84484; 85025; 85610; 85730; 87040; 87081; 87086; 87340; 88300; 89190; 90935; 93005; 93970; 94640; 94660; 94664; 96374; 96375; 97110; 97116; 97163; 97530; 99291-25